=== PATIENT | male | born 1950 | race Caucasian/White ===

== ENCOUNTER 2017-02-16 16:41 | Emergency (ER) | payer OTHER ==
[~2017-02-16] VITALS: Ht 180.3 cm; Wt 106.9 kg
[~2017-02-16 16:41] MED LIST: ASPIRIN325 MG PO; COQ10 PO; DEPAKOTE250 MG PO; FISH OIL 1,0001 EAC7 PO; MUCINEX COLD-F177 ML PO; ONE DAILY FOR1 EAC2 PO; PREDNISONE20 MG PO; PROAIR HFA8.5 GM IH; RED YEAST RICE600 MG PO
[2017-02-16] MEDS ORDERED: NORCO 5/3251 TABLET PO (20:10)
[2017-02-16 20:28] VITALS: BP 185/95
== END 2017-02-16 20:29 | disposition home or self-care (01) ==
LOC: EME 16:41 → RME 16:41
DX: T20.10XA Burn of first degree of head, face, and neck, unspecified site, initial encounter (principal); Y84.8 Other medical procedures as the cause of abnormal reaction of the patient, or of later complication, without mention of misadventure at the time of the procedure; Z98.890 Other specified postprocedural states; Z85.828 Personal history of other malignant neoplasm of skin; Z79.82 Long term (current) use of aspirin; Z87.891 Personal history of nicotine dependence
CPT/HCPCS: 99281; 99284